=== PATIENT | female | born 1965 | race Hispanic/Latino ===

== ENCOUNTER 2025-05-31 15:29 | Emergency (ER) | payer OTHER ==
[~2025-05-31] VITALS: Ht 152.4 cm; Wt 62.6 kg
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
--- NOTE | 2025-05-31 17:30 | NUR ---
UPON MEDICATING PATIENT, PATIENT WAS UPSET ASKING WHAT IS GOING ON, UNSURE WHAT IS HAPPENING, EXPLAINED TO PATIENT I HAVE MEDICATIONS FOR THE PAIN AND NAUSEA THAT THE DR ORDERED. NOTIFIED ER PHYSICIAN.
[2025-05-31] MEDS: ORPHENADRINE 60MG/2ML IM ONE (17:41)
--- NOTE | 2025-05-31 17:45 | NUR ---
ER PHYSICIAN AT BEDSIDE WITH PATIENT AND PRIMARY NURSE
[2025-05-31 17:55] VITALS: BP 141/73; PULSE 80; RESP 16; TEMP 98.9; O2SAT 100
[2025-05-31] MEDS ORDERED: METH-662 PO (18:05)
[2025-05-31] MEDS ORDERED: NAPR-1194 PO (18:05)
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
== END 2025-05-31 18:32 | disposition home or self-care (01) ==
LOC: EDH 15:29
DX: S46.812A Strain of other muscles, fascia and tendons at shoulder and upper arm level, left arm, initial encounter (principal); S80.02XA Contusion of left knee, initial encounter; I10 Essential (primary) hypertension; M79.7 Fibromyalgia; Z88.5 Allergy status to narcotic agent; Z98.51 Tubal ligation status; V89.2XXA Person injured in unspecified motor-vehicle accident, traffic, initial encounter; Y93.89 Activity, other specified; Y92.89 Other specified places as the place of occurrence of the external cause; Y99.8 Other external cause status
CPT/HCPCS: 99284; 72040; 73562; 72100; 72072; 96372 ×2; J1885; J2360

== ENCOUNTER → 2025-08-24 | Outpatient (CLI) | payer OTHER ==
[~2025-08-24] MED LIST: METH-662 PO; NAPR-1194 PO
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
== END | disposition home or self-care (01) ==
LOC: RAH 10:33
PROVIDERS: ATTEND Internal Medicine
DX: M25.551 Pain in right hip (principal); M79.7 Fibromyalgia
CPT/HCPCS: 36415; 73502; 82550; 85651; 86038; 86215; 86235; 86431